=== PATIENT | female | born 1990 | race Asian ===

== ENCOUNTER 2022-12-29 08:54 | Day surgery (SDC) | payer OTHER ==
[~2022-12-29] VITALS: Ht 160 cm; Wt 61.2 kg
[2022-12-29] MEDS ORDERED: diphenhydrAMINE 50 MG/ML VIAL ONE (09:39)
[2022-12-29] MEDS ORDERED: LIDOCAINE 2% 100 MG/5 ML UJET TP ONE (09:40)
[2022-12-29] MEDS ORDERED: fentaNYL citrate 0.05 MG/ML VIAL ONE (09:40)
[2022-12-29] MEDS ORDERED: MIDAZOLAM 5 MG/5 ML VIAL ONE (09:40)
[2022-12-29] MEDS ORDERED: MIDAZOLAM 2 MG/2 ML VIAL IVP ONE (11:20)
[2022-12-29] MEDS ORDERED: fentaNYL citrate 0.05 MG/ML VIAL IVP ONE (11:20)
[2022-12-29] MEDS ORDERED: diphenhydrAMINE 50 MG/ML VIAL IVP ONE (11:20)
== END 2022-12-29 11:50 | disposition home or self-care (01) ==
LOC: MDS 08:54 → MMU 08:54 → MDS 11:50
PROVIDERS: ATTEND Internal Medicine Gastroenterology
DX: K62.5 Hemorrhage of anus and rectum (principal); K58.2 Mixed irritable bowel syndrome; F41.9 Anxiety disorder, unspecified; G43.909 Migraine, unspecified, not intractable, without status migrainosus; Z90.49 Acquired absence of other specified parts of digestive tract
CPT/HCPCS: 45378; J1200; J2250; J3010